=== PATIENT | male | born 1955 | race Caucasian/White ===

== ENCOUNTER 2022-10-20 12:20 | Emergency (ER) | payer OTHER, MEDICAID ==
[~2022-10-20] VITALS: Ht 165.1 cm; Wt 57.2 kg
[2022-10-20 12:57] VITALS: BP_SYST 97
--- NOTE | 2022-10-20 15:28 | NUR ---
Patient to [facility] for evaluation. Side rails up.
--- NOTE | 2022-10-20 15:29 | NUR ---
ER at bedside examining patient.
--- NOTE | 2022-10-20 15:32 | NUR ---
PATIENT BROUGHT IN WITH DAUGHTER AT BEDSIDE COMPLAINING OF GENERALIZED WEAKNESS, ABDOMINAL PAIN, SORE THROAT AND POOR PO INTAKE X 1 MONTH. PATIENT HAS ALSO BEEN EXPERIENCING DEPRESSION. PER DAUGHTER, PATIENT'S IS ILL AND HAS ALSO BEEN LOSSING WEIGHT. NO OTHER COMPLAINTS/INJURIES PER PATIENT OR NOTED.
[2022-10-20 16:14] LABS: BASOPHILS % (AUTO) 0.2 % (0.0-2.0); EOSINOPHILS % (AUTO) 0.2 % (0.0-4.0); HEMATOCRIT 25.1 % (36-54); HEMOGLOBIN 8.2 g/dL (14.0-18.0); LYMPHOCYTES # (AUTO) 1.8 K/uL (1.0-5.5); LYMPHOCYTES % (AUTO) 18.7 % (20.5-51.5); MEAN CORPUSCULAR HEMOGLOBIN 23 pg (27-31); MEAN CORPUSCULAR HGB CONC 33 % (32-36); MEAN CORPUSCULAR VOLUME 70 fL (79.0-98.0); MONOCYTES # (AUTO) 0.6 K/uL (0.0-1.0); MONOCYTES % (AUTO) 6.3 % (1.7-9.3); NEUTROPHILS # (AUTO) 7.3 K/uL (1.8-7.7); NEUTROPHILS % (AUTO) 74.6 % (40.0-70.0); PLATELET COUNT (AUTO) 402 K/uL (130-430); RED BLOOD CELL COUNT(AUTO) 3.61 MIL/uL (4.2-6.2); RED CELL DISTRIBUTION WIDTH 17.6 % (9.0-15.0); WHITE BLOOD COUNT (AUTO) 9.8 K/uL (4.8-10.8)
[2022-10-20 16:25] LABS: CALCIUM 8.4 mg/dL (8.4-11.0); CREATININE 0.94 mg/dL (0.55-1.30)
[2022-10-20 16:30] LABS: ALBUMIN 2.6 g/dL (3.4-4.8); TOTAL BILIRUBIN 0.5 mg/dL (0.0-1.0)
--- NOTE | 2022-10-20 17:54 | NUR ---
DR POWERS IN ROOM FOR RE-EXAM, UPDATED ON STATUS AND CT FINDINGS.
[2022-10-20] MEDS ORDERED: NACL 0.9% 1,000 ML IV ONE (18:00)
[2022-10-20 18:04] LABS: BILIRUBIN,URINE NEGATIVE (NEGATIVE); BLOOD, URINE NEGATIVE (NEGATIVE); CLARITY/URINE CLEAR (CLEAR); COLOR,URINE YELLOW (YELLOW); GLUCOSE,URINE NEGATIVE (NEGATIVE); KETONES,URINE 2+ (NEGATIVE); LEUKOCYTE ESTERASE ,URINE NEGATIVE (NEGATIVE); NITRITE, URINE NEGATIVE (NEGATIVE); PH,URINE 5.5 (5.0-8.0); PROTEIN URINE NEGATIVE (NEGATIVE)
--- NOTE | 2022-10-20 18:44 | NUR ---
IV FLUIDS INFUSING WELL, SON AT BEDSIDE. WILL CONT TO MONITOR. VSS
--- NOTE | 2022-10-20 19:59 | NUR ---
Patient given written and verbal discharge instructions and verbalizes understanding. ER MD POWERS discussed with patient the results and treatment provided. Patient in stable condition. ID arm band removed. IV catheter removed intact and dressing applied, no active bleeding. NO Rx given. Patient educated on pain management and to follow up with PMD. Pain Scale 0. Opportunity for questions provided and answered. Medication side effect fact sheet provided.
[2022-10-20 20:00] VITALS: BP_SYST 122
== END 2022-10-20 20:02 | disposition home or self-care (01) ==
LOC: SED 12:20
DX: E86.0 Dehydration (principal); R63.0 Anorexia; F32.A Depression, unspecified; R53.1 Weakness; R10.84 Generalized abdominal pain; J02.9 Acute pharyngitis, unspecified; I10 Essential (primary) hypertension; Z79.899 Other long term (current) drug therapy
CPT/HCPCS: 99284; 71250; 96360; 80053; 85025; 36415; 76376; 74176; 81003; J7030